=== PATIENT | female | born 1950 | race Caucasian/White ===

== ENCOUNTER 2019-12-14 15:24 | Inpatient (IN) | payer SELFPAY ==
--- NOTE | 2019-12-14 15:40 | PDOC ---
Rapid Medical Evaluation Time Seen by Provider: 12/14/19 15:36 Medical Evaluation: Allergies Allergy/AdvReac Type Severity Reaction Status Date / Time No Known Allergies Allergy Verified 11/28/14 13:45 12/14/19 15:36 CC: yellow diarrhea and rectal bleeding. PMHx-cirrhosis PE: Abd SNTND. Orders: GIB w/u Patient will proceed to the ED for further evaluation. 12/14/19 15:40 Discharge Disposition - Diagnosis Rectal bleeding - Referrals - Patient Instructions - Post Discharge Activity
[2019-12-14 15:42] VITALS: BMI 31.8
[2019-12-14 16:16] LABS: BASO % 0.1 % (0-2.0); EOS % 0.1 % (0-4.5); HEMATOCRIT 30.3 % (32.4-45.2); HEMOGLOBIN 10.4 GM/dL (10.7-15.3); LYMPH % 6.9 % (8-40); MCH 35.3 pg (25.7-33.7); MCHC 34.2 g/dl (32.0-36.0); MEAN CELL VOLUME 103.2 fl (80-96); MEAN PLT VOLUME 9.4 fl (7.5-11.1); MONO % 7.2 % (3.8-10.2); NEUT % 85.7 % (42.8-82.8); RBC 2.94 M/mm3 (3.60-5.2); RDW 14.8 % (11.6-15.6); WHITE BLOOD COUNT 4.4 K/mm3 (4.0-10.0)
--- NOTE | 2019-12-14 17:03 | PDOC ---
History of Present Illness - General Chief Complaint: Bleeding from Anus Stated Complaint: ANAL BLEEDING Time Seen by Provider: 12/14/19 15:36 History Source: Patient, Family Exam Limitations: Language Barrier - History of Present Illness Initial Comments: Connor Nelson is a 69 yo F w a hx of alcoholic cirhhosis and renal carcinoma presenting w a 3 day hx of bloody diarrhea. The diarrhea is not painful but the patient states when she goes to the bathroom the toilet is full of red blood. Diarrhea has been occuring twice an hour for the past 3 days. She denies having abdominal pain. She endorses fevers, chills, body aches, non- productive cough, runny nose, nausea without emesis. Daughter has been giving her tylenol for the past 2 days with minimal relief. Denies having chest pain, SOB, difficulty breathing. Denies recent travel outside of the country. Denies recent sick exposures. Denies blurry vision. PCP: Doc at [facility] Allergies: NKA, NKDA Social Hx: Former heavy drinker, denies smoking or ilicit drug usage PSH: None reported Past History - Past Medical History Allergies/Adverse Reactions: Allergies Allergy/AdvReac Type Severity Reaction Status Date / Time No Known Allergies Allergy Verified 12/14/19 15:37 Home Medications: Ambulatory Orders Alendronate Sodium [Fosamax] 1 tab PO WEEKLY 12/14/19 Calcium Carbonate/Vitamin D3 [Calcium 600-Vit D3 400 Tablet] 1 each PO DAILY Carvedilol [Coreg -] 3.125 mg PO DAILY 12/14/19 Carvedilol [Coreg -] 6.25 mg PO HS 12/14/19 Folic Acid 1 mg PO DAILY 12/14/19 Kidney Stones: Yes - Psycho Social/Smoking Cessation Hx Smoking History: Never smoked Have you smoked in the past 12 months: No Hx Alcohol Use: No Drug/Substance Use Hx: No Review of Systems - Review of Systems Able to Perform ROS?: Yes Comments:: CONSTITUTIONAL: Present: fever, chills, fatigue EYES: Absent: visual changes ENT: Absent: ear pain, no sore throat CARDIOVASCULAR: Absent: chest pain, no palpitations RESPIRATORY: Present: Cough Absent: no SOB GI: Present: Nausea, bloody diarrhea Absent: abdominal pain, no vomiting, no constipation GENITOURINARY: Absent: dysuria, no frequency, no hematuria MUSKULOSKELETAL: Present: Myalgia Absent: back pain, no arthralgia SKIN: Absent: rash NEURO: Absent: headache *Physical Exam - Vital Signs Last Vital Signs Temp Pulse Resp BP Pulse Ox 98.4 F 81 18 127/56 L 98 12/14/19 15:37 12/14/19 15:37 12/14/19 15:37 12/14/19 15:37 12/14/19 15:37 - Physical Exam GENERAL: Patient appears pale, jaundice, weak and ill. Moderate distress. HEENT: Normocephalic, atraumatic. PERRL, EOM intact. CARDIOVASCULAR: Tachycardic rate. Regular rhythm. PULMONARY: No evidence of respiratory distress. Lungs clear to auscultation bilaterally. No wheezing, rales or rhonchi. ABDOMEN: Hyperactive bowel sounds. Soft, non-distended, non-tender. EXTREMITIES: Normal ROM in all four extremities. No gross deformities. SKIN: Warm, dry. No rash NEUROLOGICAL: No focal neurological deficits. Rectal Exam: positive: normal rectal tone, heme positive stool, hemorrhoids, other (Patient has kathie bright red blood per rectum). negative: melena ED Treatment Course - LABORATORY CBC & Chemistry Diagram: 12/14/19 15:48 12/14/19 15:48 - ADDITIONAL ORDERS Additional order review: 12/14/19 15:48 RBC 2.94 L MCV 103.2 H MCHC 34.2 RDW 14.8 MPV 9.4 Neutrophils % 85.7 H Lymphocytes % 6.9 L D Monocytes % 7.2 Eosinophils % 0.1 D Basophils % 0.1 Medical Decision Making - Medical Decision Making Connor Nelson is a 69 yo F w a hx of alcoholic cirhhosis and renal carcinoma presenting w a 3 day hx of bloody diarrhea. The diarrhea is not painful but the patient states when she goes to the bathroom the toilet is full of red blood. Diarrhea has been occuring twice an hour for the past 3 days. She denies having abdominal pain. She endorses fevers, chills, body aches, non- productive cough, runny nose, nausea without emesis. Daughter has been giving her tylenol for the past 2 days with minimal relief. Vital Signs Temp Pulse Resp BP Pulse Ox 98.4 F 81 18 127/56 L 98 12/14/19 15:37 12/14/19 15:37 12/14/19 15:37 12/14/19 15:37 12/14/19 15:37 DDx IBNLT: Lower GI bleed more likely than upper GI bleed, Inluenza, gastroenteritis, dysentery Plan: Labs, flu swab, IV hydration, analgesia, re-assess. Labs: patient is anemic but appears to be around baseline Hypokalemic - repleting orally. Flu: Positive Rectal exam: There is bright red blood on rectal exam. There is also a painless external hemorrhoid. Plan: Tamiflu, admit to hospital as patient has multiple medical comorbidities, the flu, and bright red blood per rectum - GI consult Discharge - Discharge Information Problems reviewed: Yes Clinical Impression/Diagnosis: Rectal bleeding, BRBPR (bright red blood per rectum), Influenza A, Hypokalemia Condition: Stable - Admission Yes - Follow up/Referral - Patient Discharge Instructions - Post Discharge Activity
[2019-12-14 17:23] LABS: ALBUMIN 2.8 g/dl (3.4-5.0); BILIRUBIN,TOTAL 1.3 mg/dL (0.2-1); BLOOD UREA NITROGEN 20.2 mg/dL (7-18); CREATININE 0.9 mg/dL (0.55-1.3); POTASSIUM 3.1 mmol/L (3.5-5.1); TOT PROT 7.1 g/dl (6.4-8.2)
[2019-12-14] MEDS ORDERED: SODIUM CHLORIDE 0.9% 500 ML INFUS.BAG IV ONE (17:29)
[2019-12-14] MEDS ORDERED: POTASSIUM CHLORIDE ORAL LIQUID 20 MEQ/15 ML PO ONE (17:41)
[2019-12-14] MEDS ORDERED: OSELTAMIVIR PHOSPHATE 75 MG CAPSULE PO ONE (18:02)
[2019-12-14] MEDS ORDERED: OSELTAMIVIR PHOSPHATE 75 MG CAPSULE ONE (18:18)
[2019-12-14] MEDS ORDERED: POTASSIUM CHLORIDE ORAL LIQUID 20 MEQ/15 ML ONE (18:18)
--- NOTE | 2019-12-14 18:31 | PDOC ---
Attending Attestation - Resident Resident Name: Joe Up - ED Attending Attestation I have performed the following: I have examined & evaluated the patient, The case was reviewed & discussed with the resident, I agree w/resident's findings & plan - HPI HPI: 12/16/19 07:30 69 yo F w a hx of alcoholic cirhhosis and renal carcinoma presenting w a 3 day hx of bloody diarrhea/BRBPR and fever. Diarrhea has been occurring twice an hour for the past 3 days. She denies having abdominal pain. She endorses fevers , chills, body aches, non-productive cough, runny nose, nausea without emesis. Daughter has been giving her tylenol for the past 2 days with minimal relief. - Physicial Exam PE: 12/14/19 18:30 Agree with the resident's HPI and PE as documented in the electronic medical record. NAD, well appearing, EOMI, PERRL, nl conjunctiva, anicteric; neck supple. lungs clear, normal HR, +holosystolic murmur, abdomen soft nontender. obese. no rebound, guarding. Back nontender. MCKINNEY x4, no focal neuro deficits. No peripheral edema. normal color for ethnicity, WWP. Rectal exam performed by resident with gross bright red blood per rectum 12/14/19 18:31 12/14/19 18:31 - Medical Decision Making 12/14/19 18:31 Vital Signs Temp Pulse Resp BP Pulse Ox 98.4 F 81 18 127/56 L 98 12/14/19 15:37 12/14/19 15:37 12/14/19 15:37 12/14/19 15:37 12/14/19 15:37 DDX GIB: UGIB vs LGIB, diverticular bleed, AVM, polyp, brisk UGIB, PUD/duodenal ulcer, anemia, electrolyte/metabolic derangements, ischemic colitis, hemorrhagic colitis, mesenteric ischemia. Madelyn russo tear, doubt Borhaaves. Vital signs, within normal limits, no tachycardia, hemodynamically appropriate DDX GIB: UGIB vs LGIB, diverticular bleed, AVM, polyp, brisk UGIB, PUD/duodenal ulcer, anemia, electrolyte/metabolic derangements, ischemic colitis, hemorrhagic colitis, mesenteric ischemia. Madelyn russo tear, doubt Borhaaves. abdomen soft nontender, BRBPR, serial crits/abd exams. no indication for transfusion now, will need trending BRBPR going with more LGIB, cannot rule out UGIB/brisk bleed, protonix IV, defer UGIB regimen to GI, given history of cirrhosis flu positive, tamiflu treatment. admission for bloody diarrhea/colitis and influenza, medical management, GI consultation, NPO, bowel rest and supportive care 12/14/19 18:50
--- NOTE | 2019-12-14 19:17 | PN ---
Teaching Attending Note Name of Resident: Jasmeet Lopez ATTENDING PHYSICIAN STATEMENT I saw and evaluated the patient. I reviewed the resident's note and discussed the case with the resident. I agree with the resident's findings and plan as documented. SUBJECTIVE: Patient is a 69 year old woman with a PMH of Alcohol abuse, Alcoholic liver cirhhosis and Renal carcinoma presenting with a 3 day history of bloody diarrhea. The diarrhea is not painful but the patient states when she goes to the bathroom the toilet is full of red blood. Diarrhea has been occuring twice an hour for the past 3 days. She denies having abdominal pain. She has fevers, chills, body aches, non-productive cough, runny nose, nausea without emesis. Daughter has been giving her tylenol for the past 2 days with minimal relief. Denies having chest pain, SOB, blurry vision or recent travel outside of the country. Denies recent sick exposures. Denies current alcohol use, tobacco or illicit drug use. OBJECTIVE: Alert Vital Signs Period Temp Pulse Resp BP Sys/Galindo Pulse Ox Last 24 Hr 98.4 F 81 18 127/56 98 HEENT: No Jaundice, eye redness or discharge, PERRLA, EOMI. Normocephalic, atraumatic. External ears are normal and hearing is grossly intact. No nasal discharge. Neck: Supple, nontender. No palpable adenopathy or thyromegaly. No JVD Chest: Good effort. Clear to auscultation and percussion. Heart: Regular. No S3, rub or murmur Abdomen: Not distended, soft, nontender and no HSM. No rebound or guarding. Normal bowel sounds. Ext: Peripheral pulses intact. No leg edema. Has hemorrhoids. Skin: Warm and dry. No petechiae, rash or ecchymosis. Neuro: Alert. Oriented x3. CN 2-12 grossly intact. Sensation grossly intact in all four extremities and DTR are symmetric. Psych: Appropriate mood and affect. Good insight. Home Medications Medication Instructions Recorded Alendronate Sodium [Fosamax] 1 tab PO WEEKLY 12/14/19 Calcium Carbonate/Vitamin D3 1 each PO DAILY 12/14/19 [Calcium 600-Vit D3 400 Tablet] Carvedilol [Coreg -] 3.125 mg PO DAILY 12/14/19 Carvedilol [Coreg -] 6.25 mg PO HS 12/14/19 Folic Acid 1 mg PO DAILY 12/14/19 Abnormal Lab Results 12/14/19 12/14/19 12/14/19 15:48 15:48 16:48 RBC 2.94 L Hgb 10.4 L Hct 30.3 L D MCV 103.2 H MCH 35.3 H Neutrophils % 85.7 H Lymphocytes % 6.9 L D Potassium 3.1 L Chloride 114 H BUN 20.2 H Calcium 8.0 L Total Bilirubin 1.3 H AST 198 H Albumin 2.8 L Influenza A (Rapid) Positive A ASSESSMENT AND PLAN: 1. GI bleeding and Influenza A infection - Bleeding site unclear, though she has hemorrhoids. Will get CT abdomen/pelvis with contrast, send stool for routine stool studies, hydrate with IV NS and treat with IV Protonix 40 mg bid. Anemia likely multifactorial including acute blood loss and effects of alcoholism. Macrocytosis may signal recent alcohol use. Will do basic anemia work up including Vitamin B12/folate levels, reticulocyte count and iron studies. Send blood for type and screen. Monitor HCT q 3 hours and transfuse when clinically indicated. Consult GI. Hypokalemia likely partly due to stool losses. Will check serum magnesium and give IV and PO KCL. Being treated with Tamiflu and will place on isolation. Get CXR and UA. EKG pending. Will continue comprehensive care for all of patients comorbid conditions. 2. Hypoalbuminemia - Possibly due to combined effects of malnutrition and inflammation associated with comorbid chronic conditions. Will ensure adequate dietary protein intake and also consult mosaic technician. Urinalysis pending. 3. Obesity Counseled on the risks associated with obesity. Will provide patient all the necessary assistance, counseling and positive reinforcement to facilitate weight loss. Consult mosaic technician. 4. Alcohol abuse - Implement [facility] withdrawal [facility] and do neurochecks. Implement seizure, fall and aspiration precautions. Treat with thiamine and folic acid and monitor electrolytes (Ca,Mg,K,P). Counseled patient about abstaining from alcohol. Will consult it operations specialist and refer to alcohol detox upon discharge. 5. DVT prophylaxis - SCD 6. Advance directives - Full code
[2019-12-14 20:41] LABS: RETICULOCYTES 1.68 % (0.5-1.5)
[2019-12-14 21:33] LABS: PLATELET ESTIMATE DECREASED
[2019-12-14] MEDS ORDERED: SODIUM CHLORIDE 0.9%/KCL 20 MEQ/1,000 ML INFUS.BAG IV SCH (21:45)
[2019-12-14 21:57] LABS: PLATELET COUNT 30 K/MM3 (134-434)
[2019-12-14 21:59] LABS: BASO % 0.2 % (0-2.0); HEMATOCRIT 31.3 % (32.4-45.2); HEMOGLOBIN 10.6 GM/dL (10.7-15.3); LYMPH % 6.4 % (8-40); MCH 35.4 pg (25.7-33.7); MCHC 34.1 g/dl (32.0-36.0); MEAN CELL VOLUME 103.9 fl (80-96); MEAN PLT VOLUME 10.1 fl (7.5-11.1); MONO % 8.9 % (3.8-10.2); NEUT % 84.5 % (42.8-82.8); RBC 3.01 M/mm3 (3.60-5.2); RDW 14.8 % (11.6-15.6); WHITE BLOOD COUNT 4.7 K/mm3 (4.0-10.0)
[2019-12-14] MEDS ORDERED: POTASSIUM CHLORIDE ORAL LIQUID 20 MEQ/15 ML PO SCH (22:00)
[2019-12-14 22:03] LABS: PLATELET COUNT 34 K/MM3 (134-434)
[2019-12-14 22:11] LABS: MAGNESIUM 1.8 mg/dL (1.8-2.4)
[2019-12-15] MEDS ORDERED: OSELTAMIVIR PHOSPHATE 75 MG CAPSULE ONE (00:30)
--- NOTE | 2019-12-15 00:34 | HP ---
CHIEF COMPLAINT: Bleeding pre rectum over the past 3 days as well as cough, fever, and chills for the past 2 days PCP: Dr. Lydia Pitt ([facility]) HISTORY OF PRESENT ILLNESS: This is a 69 year old female with PMH significant for alcoholic liver cirrhosis , RCC (renal cell carcinoma), osteoporosis, and hypertension. She presented to the ER with complaints of bleeding pre rectum over the past 3 days as well as cough, fever, and chills for the past 2 days. She is a [place] speaker, and her daughter was present at bedside to assist with the history and physical examination. The bleeding began 3 days ago, first noticed as a few drops of blood mixed with stool as well as on the toilet paper after wiping. She also felt a sensation of heaviness inside the anal cavity, and felt something protruding while she was defecating. The amount of blood gradually began to increase over the next few days. She has had approximately 10 episodes per day, all associated with bleeding. She has no history of bleeding or hemorrhoids prior to this event. There was no associated abdominal or rectal pain involved, and no nausea, vomiting, alternating constipation, dizziness, light headedness, SOB, chest pain , palpitations, dysuria, hematuria, increased frequency, or polyuria. She was diagnosed with liver cirrhosis 5 years ago as a result of heavy alcohol intake in the past. Patient states that she consumed approximately a bottle of whiskey over the course of 1,2 days every week, but quit 18 years ago. Around the same time, she developed hemetemesis for a few days, and had an endoscopy performed (first in 2015 and then again in 2016). She states that there were no abnormal findings either time. She had an attempted colonoscopy done 6 years ago, which could not be completed. The patient is unsure about the rationale, and states that she was told that her history of radiation therapy (2/ cervical CA 20 years ago) was a contraindication to colonoscopy. According to her, the procedure was abandoned , and no repeated attempts have been made. She had an endoscopy done in 2014 as well as 2016 She also presents with a cough, fever, and chills for the past 2 days. The cough started as a dry cough, but she has been producing clear sputum since arriving at the ER a few hours ago. She lives with her daughter, son in law, and 3 grand children. The grandchildren have had similar symptoms over the past few weeks. The patient has not received the flu vaccine this season, has no other recent illnesses, and denies recent travel. She has a history of cervical cancer diagnosed in [place] 20 years ago, treated with radiation therapy for 3 months. As per the patient's daughter, she had a lung mass removed shortly afterwards. She did not receive any chemotherapy at the time. She also has a history of right sided renal cell carcinoma, for which she had her left kidney removed. Her family history is positive for lung CA (father), and a brother who suddenly (unsure why). ER course was notable for: (1) H/H 10.4/30.3 (2) FOBT+ (3) K 3.1 Recent Travel: denies PAST MEDICAL HISTORY: As listed in HPI PAST SURGICAL HISTORY: As listed in HPI Social History: Smoking: Quit many years ago, smoked occasionally Alcohol: Approximately a bottle of whiskey over the course of 1,2 days every week, but quit 18 years ago Drugs: denies Worked as a clothes salesperson in a market in [place] Allergies No Known Allergies Allergy (Verified 12/14/19 15:37) HOME MEDICATIONS: Home Medications Medication Instructions Recorded Alendronate Sodium [Fosamax] 1 tab PO WEEKLY 12/14/19 Calcium Carbonate/Vitamin D3 1 each PO DAILY 12/14/19 [Calcium 600-Vit D3 400 Tablet] Carvedilol [Coreg -] 3.125 mg PO DAILY 12/14/19 Carvedilol [Coreg -] 6.25 mg PO HS 12/14/19 Folic Acid 1 mg PO DAILY 12/14/19 REVIEW OF SYSTEMS CONSTITUTIONAL: fever Absent: fever, chills, diaphoresis, generalized weakness, malaise, loss of appetite, weight change HEENT: Absent: rhinorrhea, nasal congestion, throat pain, throat swelling, difficulty swallowing, mouth swelling, ear pain, eye pain, visual changes CARDIOVASCULAR: Absent: chest pain, syncope, palpitations, irregular heart rate, lightheadedness , peripheral edema RESPIRATORY: cough Absent: cough, shortness of breath, dyspnea with exertion, orthopnea, wheezing, stridor, hemoptysis GASTROINTESTINAL: melena, Absent: abdominal pain, abdominal distension, nausea, vomiting, diarrhea, constipation, melena, hematochezia GENITOURINARY: Absent: dysuria, frequency, urgency, hesitancy, hematuria, flank pain, genital pain MUSCULOSKELETAL: Absent: myalgia, arthralgia, joint swelling, back pain, neck pain SKIN: Absent: rash, itching, pallor HEMATOLOGIC/IMMUNOLOGIC: Absent: easy bleeding, easy bruising, lymphadenopathy, frequent infections ENDOCRINE: Absent: unexplained weight gain, unexplained weight loss, heat intolerance, cold intolerance NEUROLOGIC: Absent: headache, focal weakness or paresthesias, dizziness, unsteady gait, seizure, mental status changes, bladder or bowel incontinence PSYCHIATRIC: Absent: anxiety, depression, suicidal or homicidal ideation, hallucinations. PHYSICAL EXAMINATION Vital Signs - 24 hr 12/14/19 15:37 Temperature 98.4 F Pulse Rate 81 Respiratory 18 Rate Blood Pressure 127/56 L O2 Sat by Pulse 98 Oximetry (%) GENERAL: Awake, alert, and fully oriented, in no acute distress. HEAD: Normal with no signs of trauma. EYES: ISRRAEL, EOMI, scleral icterus present EARS, NOSE, THROAT: Ears normal, nares patent, oropharynx clear without exudates. Dry mucous membranes. NECK: Normal range of motion, supple without lymphadenopathy, JVD, or masses. LUNGS: Decreased BS B/L, surgical scar noticed below left scapula HEART: Regular rate and rhythm, normal S1 and S2 without murmur, rub or gallop. ABDOMEN: Soft, nontender, not distended, on digital rectal exam hemorrhoid noticed in 6 o clock position, normal tone, internal hemorrhoids appreciated, finger was covered in blood, Pérez's negative MUSCULOSKELETAL: Normal range of motion at all joints. No bony deformities or tenderness. No CVA tenderness. UPPER EXTREMITIES: 2+ pulses, warm, well-perfused. No cyanosis. No clubbing. No peripheral edema. LOWER EXTREMITIES: Localized edema over left ankle NEUROLOGICAL: Cranial nerves II-XII intact. Normal speech. Normal gait. PSYCHIATRIC: Cooperative. Good eye contact. Appropriate mood and affect. SKIN: Warm, dry, normal turgor, no rashes or lesions noted, normal capillary refill. Laboratory Results - last 24 hr 12/14/19 12/14/19 12/14/19 15:37 15:48 15:48 WBC 4.4 RBC 2.94 L Hgb 10.4 L Hct 30.3 L D MCV 103.2 H MCH 35.3 H MCHC 34.2 RDW 14.8 Plt Count 30 L* D MPV 9.4 Absolute Neuts (auto) 3.8 Neutrophils % 85.7 H Lymphocytes % 6.9 L D Monocytes % 7.2 Eosinophils % 0.1 D Basophils % 0.1 Nucleated RBC % 0 Platelet Estimate Decreased Platelet Comment No clumping noted Retic Count 1.68 H Sodium 143 Potassium 3.1 L Chloride 114 H Carbon Dioxide 21 Anion Gap 8 BUN 20.2 H Creatinine 0.9 Est GFR (CKD-EPI)AfAm 75.61 Est GFR (CKD-EPI)NonAf 65.24 Random Glucose 89 Calcium 8.0 L Magnesium 1.8 Total Bilirubin 1.3 H AST 198 H ALT 60 Alkaline Phosphatase 69 Total Protein 7.1 Albumin 2.8 L Stool Occult Blood Positive Influenza A (Rapid) Influenza B (Rapid) Blood Type Antibody Screen 12/14/19 12/14/19 12/14/19 15:48 15:48 16:48 WBC RBC Hgb Hct MCV MCH MCHC RDW Plt Count MPV Absolute Neuts (auto) Neutrophils % Lymphocytes % Monocytes % Eosinophils % Basophils % Nucleated RBC % Platelet Estimate Platelet Comment Retic Count Cancelled Sodium Potassium Chloride Carbon Dioxide Anion Gap BUN Creatinine Est GFR (CKD-EPI)AfAm Est GFR (CKD-EPI)NonAf Random Glucose Calcium Magnesium Total Bilirubin AST ALT Alkaline Phosphatase Total Protein Albumin Stool Occult Blood Influenza A (Rapid) Positive A Influenza B (Rapid) Negative Blood Type O POSITIVE Antibody Screen Negative 12/14/19 21:39 WBC 4.7 RBC 3.01 L Hgb 10.6 L Hct 31.3 L MCV 103.9 H MCH 35.4 H MCHC 34.1 RDW 14.8 Plt Count 34 L* MPV 10.1 Absolute Neuts (auto) 3.9 Neutrophils % 84.5 H Lymphocytes % 6.4 L Monocytes % 8.9 Eosinophils % 0.0 D Basophils % 0.2 Nucleated RBC % 0 Platelet Estimate Platelet Comment Retic Count Sodium Potassium Chloride Carbon Dioxide Anion Gap BUN Creatinine Est GFR (CKD-EPI)AfAm Est GFR (CKD-EPI)NonAf Random Glucose Calcium Magnesium Total Bilirubin AST ALT Alkaline Phosphatase Total Protein Albumin Stool Occult Blood Influenza A (Rapid) Influenza B (Rapid) Blood Type Antibody Screen ASSESSMENT/PLAN: 69 year old female with PMH significant for alcoholic liver cirrhosis, RCC ( renal cell carcinoma), osteoporosis, and hypertension. She presented to the ER with complaints of bleeding pre rectum over the past 3 days as well as cough, fever, and chills for the past 2 days #Bleeding DE - FOBT + although exact source is unclear, CT AP w/wo contrast to investigate further - IV N/S with 20mEQ K for correction of hypokalemia - Protonix IV 40mg BID - GI consult placed #Anemia - Likely due to volume loss 2/2 bleeding, macrocytosis likely due to hx of alcohol abuse - H/H 10.4/30.3, MCV 103 - Iron TIBC profile, B12/Folate levels ordered - Will trend H/H, will transfuse if Hgb falls below 8 #Thrombocytopenia - Pt 30 -> 34k, likely due to hx of cirrhosis (Pt were 131 in 2010 and 67 in 2014, may be indicative of gradual decline with corresponding with worsening cirrhosis - Pt transfusion ordered due to Pt <50k in setting of active bleeding - Daughter not present at bedside, road boss service (ID [id number]) used to explain to patient the risks/benefits of platelet transfusion. Consent forms in Faroese as well as [place] Korean provided. After extensive discussion, pt stated she was not comfortable signing consent without her daughter, who will arrive at 0730. Explained risks of delaying transfusion, pt understood and would like to wait. Consent forms handed to SHAILESH Hoffman - Will monitor Pt count #Influenza - CXR pending - Influenza A positive - Started on Tamiflu 75mg BID - Isolation, droplet precaution #Transaminitis - T Bili 1.3, AST 198, sclera icteric on exam but no findings on abdominal exam , may be due to cirrhosis - Will F/U CT AP #Hypokalemia - May be due to fluid loss - Given 40meQ PO and 20meQ with N/S - Will F/U in AM and replete as necessary #Hx of HTN - Resume home meds once confirmed #Hx of osteoporosis - On alendronate at home, will continue once confirmed #FEN - N/S @ 83 with 20mEQ K - Monitor K+ - NPO for now due to bleeding #DVT - SCD, avoid chemical AC due to active bleeding Visit type - Emergency Visit Emergency Visit: Yes ED Registration Date: 12/14/19 Care time: The patient presented to the Emergency Department on the above date and was hospitalized for further evaluation of their emergent condition. - New Patient This patient is new to me today: Yes Date on this admission: 12/15/19 - Critical Care Critical Care patient: No ATTENDING PHYSICIAN STATEMENT I saw and evaluated the patient. I reviewed the resident's note and discussed the case with the resident. I agree with the resident's findings and plan as documented. SUBJECTIVE: OBJECTIVE: ASSESSMENT AND PLAN:
[2019-12-15] MEDS: OSELTAMIVIR PHOSPHATE 75 MG CAPSULE PO SCH ×2 (00:46→10:28)
[2019-12-15 08:04] LABS: INR 1.36 (0.83-1.09); PROTHROMBIN TIME (PATIENT) 16.1 SEC (9.7-13.0)
[2019-12-15 08:18] LABS: BASO % 0.3 % (0-2.0); HEMATOCRIT 28.6 % (32.4-45.2); HEMOGLOBIN 9.9 GM/dL (10.7-15.3); LYMPH % 7.9 % (8-40); MCH 35.4 pg (25.7-33.7); MCHC 34.7 g/dl (32.0-36.0); MEAN CELL VOLUME 102.2 fl (80-96); MEAN PLT VOLUME 10.1 fl (7.5-11.1); MONO % 10.7 % (3.8-10.2); NEUT % 81.1 % (42.8-82.8); RDW 14.4 % (11.6-15.6); WHITE BLOOD COUNT 3.1 K/mm3 (4.0-10.0)
[2019-12-15 08:37] LABS: PLATELET COUNT 32 K/MM3 (134-434)
[2019-12-15] MEDS ORDERED: OCTREOTIDE ACETATE 50 MCG/1 ML - 1 ML VIAL IVPUSH ONE (09:59)
[2019-12-15] MEDS ORDERED: PANTOPRAZOLE SODIUM 40 MG VIAL IVPUSH SCH (10:00)
[2019-12-15] MEDS ORDERED: OCTREOTIDE ACETATE 200 MCG, OCTREOTIDE ACETATE 1,000 MCG in DEXTROSE 5%-WATER - 496 ML IVPB SCH (10:00)
[2019-12-15] MEDS ORDERED: PHYTONADIONE 10 MG/1 ML AMP SQ ONE (10:01)
[2019-12-15] MEDS ORDERED: OCTREOTIDE ACETATE 100 MCG/1 ML ONE (10:19)
[2019-12-15] MEDS ORDERED: PHYTONADIONE 10 MG/1 ML AMP ONE (10:31)
[2019-12-15] MEDS ORDERED: OCTREOTIDE ACETATE 500 MCG/1 ML - 1 ML VIAL ONE (10:31)
--- NOTE | 2019-12-15 12:41 | EKG ---
Test Reason : Blood Pressure : / mmHG Vent. Rate : 085 BPM Atrial Rate : 085 BPM P-R Int : 114 ms QRS Dur : 080 ms QT Int : 354 ms P-R-T Axes : 072 026 034 degrees QTc Int : 421 ms POOR DATA QUALITY, INTERPRETATION MAY BE ADVERSELY AFFECTED NORMAL SINUS RHYTHM NONSPECIFIC ST ABNORMALITY ABNORMAL ECG WHEN COMPARED WITH ECG OF 05-DEC-2010 22:16, NO SIGNIFICANT CHANGE WAS FOUND Confirmed by MILVIA CHUN, YON ([id number]) on 12/15/2019 12:40:44 PM Referred By: Confirmed By:YON STEEL MD
--- NOTE | 2019-12-15 13:32 | CONSULT ---
Consultation: CONSULT SERVICE: Hematology/Oncology HISTORY OF PRESENT ILLNESS: 69yo F with h/o Alcoholic cirrhosis, RCC, HTN, osteoporosis, REVIEW OF SYSTEMS: CONSTITUTIONAL: Absent: fever, chills, diaphoresis, generalized weakness, malaise, loss of appetite, weight change HEENT: Absent: rhinorrhea, nasal congestion, throat pain, throat swelling, difficulty swallowing, mouth swelling, ear pain, eye pain, visual changes CARDIOVASCULAR: Absent: chest pain, syncope, palpitations, irregular heart rate, lightheadedness , peripheral edema RESPIRATORY: Absent: cough, shortness of breath, dyspnea with exertion, orthopnea, wheezing, stridor, hemoptysis GASTROINTESTINAL: Absent: abdominal pain, abdominal distension, nausea, vomiting, diarrhea, constipation, melena, hematochezia GENITOURINARY: Absent: dysuria, frequency, urgency, hesitancy, hematuria, flank pain, genital pain MUSCULOSKELETAL: Absent: myalgia, arthralgia, joint swelling, back pain, neck pain SKIN: Absent: rash, itching, pallor HEMATOLOGIC/IMMUNOLOGIC: Absent: easy bleeding, easy bruising, lymphadenopathy, frequent infections ENDOCRINE: Absent: unexplained weight gain, unexplained weight loss, heat intolerance, cold intolerance NEUROLOGIC: Absent: headache, focal weakness or paresthesias, dizziness, unsteady gait, seizure, mental status changes, bladder or bowel incontinence PSYCHIATRIC: Absent: anxiety, depression, suicidal or homicidal ideation, hallucinations. PHYSICAL EXAMINATION Vital Signs - 24 hr 12/14/19 12/15/19 12/15/19 15:37 01:03 06:00 Temperature 98.4 F 101.0 F H 99.5 F Pulse Rate 81 Pulse Rate [ 88 85 Apical] Pulse Rate [ Right Radial] Respiratory 18 20 18 Rate Blood Pressure 127/56 L Blood Pressure 127/58 L 125/55 L [Right] O2 Sat by Pulse 98 97 97 Oximetry (%) 12/15/19 07:05 Temperature Pulse Rate Pulse Rate [ Apical] Pulse Rate [ 84 Right Radial] Respiratory 20 Rate Blood Pressure Blood Pressure 141/62 [Right] O2 Sat by Pulse 97 Oximetry (%) GENERAL: Awake, alert, and fully oriented, in no acute distress. HEAD: Normal with no signs of trauma. EYES: Pupils equal, round and reactive to light, extraocular movements intact, sclera anicteric, conjunctiva clear. No lid lag. EARS, NOSE, THROAT: Ears normal, nares patent, oropharynx clear without exudates. Moist mucous membranes. NECK: Normal range of motion, supple without lymphadenopathy, JVD, or masses. LUNGS: Breath sounds equal, clear to auscultation bilaterally. No wheezes, and no crackles. No accessory muscle use. HEART: Regular rate and rhythm, normal S1 and S2 without murmur, rub or gallop. ABDOMEN: Soft, nontender, not distended, normoactive bowel sounds, no guarding, no rebound, no masses. No hepatomegaly or splenomegaly. MUSCULOSKELETAL: Normal range of motion at all joints. No bony deformities or tenderness. No CVA tenderness. UPPER EXTREMITIES: 2+ pulses, warm, well-perfused. No cyanosis. No clubbing. Cap refill <2 seconds. No peripheral edema. LOWER EXTREMITIES: 2+ pulses, warm, well-perfused. No calf tenderness. No peripheral edema. NEUROLOGICAL: Cranial nerves II-XII intact. Normal speech. Normal gait. PSYCHIATRIC: Cooperative. Good eye contact. Appropriate mood and affect. SKIN: Warm, dry, normal turgor, no rashes or lesions noted. Laboratory Results - last 24 hr 12/14/19 12/14/19 12/14/19 15:37 15:48 15:48 WBC 4.4 RBC 2.94 L Hgb 10.4 L Hct 30.3 L D MCV 103.2 H MCH 35.3 H MCHC 34.2 RDW 14.8 Plt Count 30 L* D MPV 9.4 Absolute Neuts (auto) 3.8 Neutrophils % 85.7 H Lymphocytes % 6.9 L D Monocytes % 7.2 Eosinophils % 0.1 D Basophils % 0.1 Nucleated RBC % 0 Platelet Estimate Decreased Platelet Comment No clumping noted Retic Count 1.68 H PT with INR INR Sodium 143 Potassium 3.1 L Chloride 114 H Carbon Dioxide 21 Anion Gap 8 BUN 20.2 H Creatinine 0.9 Est GFR (CKD-EPI)AfAm 75.61 Est GFR (CKD-EPI)NonAf 65.24 Random Glucose 89 Calcium 8.0 L Magnesium 1.8 Iron TIBC Iron Saturation Unsaturated IBC Total Bilirubin 1.3 H AST 198 H ALT 60 Alkaline Phosphatase 69 Total Protein 7.1 Albumin 2.8 L Vitamin B12 Serum Folate Stool Occult Blood Positive Influenza A (Rapid) Influenza B (Rapid) Blood Type Antibody Screen 12/14/19 12/14/19 12/14/19 15:48 15:48 16:48 WBC RBC Hgb Hct MCV MCH MCHC RDW Plt Count MPV Absolute Neuts (auto) Neutrophils % Lymphocytes % Monocytes % Eosinophils % Basophils % Nucleated RBC % Platelet Estimate Platelet Comment Retic Count Cancelled PT with INR INR Sodium Potassium Chloride Carbon Dioxide Anion Gap BUN Creatinine Est GFR (CKD-EPI)AfAm Est GFR (CKD-EPI)NonAf Random Glucose Calcium Magnesium Iron TIBC Iron Saturation Unsaturated IBC Total Bilirubin AST ALT Alkaline Phosphatase Total Protein Albumin Vitamin B12 Serum Folate Stool Occult Blood Influenza A (Rapid) Positive A Influenza B (Rapid) Negative Blood Type O POSITIVE Antibody Screen Negative 12/14/19 12/15/19 12/15/19 21:39 04:20 06:22 WBC 4.7 3.1 L RBC 3.01 L 2.80 L Hgb 10.6 L 9.9 L Hct 31.3 L 28.6 L MCV 103.9 H 102.2 H MCH 35.4 H 35.4 H MCHC 34.1 34.7 RDW 14.8 14.4 Plt Count 34 L* 32 L* MPV 10.1 10.1 Absolute Neuts (auto) 3.9 2.5 Neutrophils % 84.5 H 81.1 Lymphocytes % 6.4 L 7.9 L D Monocytes % 8.9 10.7 H Eosinophils % 0.0 D 0.0 Basophils % 0.2 0.3 Nucleated RBC % 0 0 Platelet Estimate Platelet Comment Retic Count PT with INR INR Sodium Potassium Chloride Carbon Dioxide Anion Gap BUN Creatinine Est GFR (CKD-EPI)AfAm Est GFR (CKD-EPI)NonAf Random Glucose Calcium Magnesium Iron TIBC Iron Saturation Unsaturated IBC Total Bilirubin AST ALT Alkaline Phosphatase Total Protein Albumin Vitamin B12 Serum Folate Stool Occult Blood Influenza A (Rapid) Influenza B (Rapid) Blood Type Cancelled Antibody Screen 12/15/19 12/15/19 12/15/19 06:22 06:22 06:22 WBC RBC Hgb Hct MCV MCH MCHC RDW Plt Count MPV Absolute Neuts (auto) Neutrophils % Lymphocytes % Monocytes % Eosinophils % Basophils % Nucleated RBC % Platelet Estimate Platelet Comment Retic Count PT with INR 16.10 H INR 1.36 H Sodium Potassium Chloride Carbon Dioxide Anion Gap BUN Creatinine Est GFR (CKD-EPI)AfAm Est GFR (CKD-EPI)NonAf Random Glucose Calcium Magnesium 2.0 Iron 11 L TIBC 269 Iron Saturation 4 L Unsaturated IBC 258 Total Bilirubin AST ALT Alkaline Phosphatase Total Protein Albumin Vitamin B12 5963 H Serum Folate 35 H Stool Occult Blood Influenza A (Rapid) Influenza B (Rapid) Blood Type Antibody Screen 12/15/19 12/15/19 10:45 10:45 WBC RBC Hgb Hct MCV MCH MCHC RDW Plt Count MPV Absolute Neuts (auto) Neutrophils % Lymphocytes % Monocytes % Eosinophils % Basophils % Nucleated RBC % Platelet Estimate Platelet Comment Retic Count PT with INR INR Sodium Potassium Chloride Carbon Dioxide Anion Gap BUN Creatinine Est GFR (CKD-EPI)AfAm Est GFR (CKD-EPI)NonAf Random Glucose Calcium Magnesium Iron TIBC Iron Saturation Unsaturated IBC Total Bilirubin AST ALT Alkaline Phosphatase Total Protein Albumin Vitamin B12 Serum Folate Stool Occult Blood Influenza A (Rapid) Influenza B (Rapid) Blood Type Cancelled O POSITIVE Antibody Screen Cancelled Active Medications Generic Name Dose Route Start Last Admin Trade Name Freq PRN Reason Stop Dose Admin Chlorhexidine Gluconate 1 applic 12/15/19 22:00 Hibiclens For Decolonization - TP HS GREY Potassium Chloride/Sodium Chloride 20 meq in 1,000 mls @ 83 mls/hr 12/14/19 21 :45 12/15/19 00:46 Ns+20 Meq Kcl - IV 83 mls/hr ASDIR GREY Administration Octreotide Acetate 200 mcg/ 500 mls @ 20.833 mls/hr 12/15/19 10:00 12/15/19 11:48 Octreotide Acetate 1,000 mcg/ IVPB 20.833 mls/hr Dextrose ASDIR GREY Administration Protocol Mupirocin 1 applic 12/15/19 22:00 Bactroban Ointment (For Decolonization) - NS 12/20/19 21:59 BID GREY Oseltamivir Phosphate 75 mg 12/14/19 22:00 12/15/19 10:28 Tamiflu - PO 12/19/19 21:59 75 mg BID GREY Administration Pantoprazole Sodium 40 mg 12/15/19 10:00 12/15/19 10:28 Protonix Iv IVPUSH 40 mg BID GREY Administration ASSESSMENT/PLAN: Dispo: We will continue to follow the patient. Thank you for this consultative opportunity. ATTENDING PHYSICIAN STATEMENT I saw and evaluated the patient. I reviewed the resident's note and discussed the case with the resident. I agree with the resident's findings and plan as documented. SUBJECTIVE: OBJECTIVE: ASSESSMENT AND PLAN:
--- NOTE | 2019-12-15 14:13 | CONSULT ---
Consultation: REQUESTING PROVIDER: Dr Molina CONSULT REQUEST: We have been asked to medically evaluate this patient for (ICU monitoring). HISTORY OF PRESENT ILLNESS: 69 year old female with PMH significant for alcoholic liver cirrhosis, RCC ( renal cell carcinoma), osteoporosis, and hypertension. She presented to the ER with complaints of bleeding pre rectum over the past 3 days as well as non productive cough, fever, and chills for the past 2 days. Pt describes it as experiencing watery diarrhea with bright red blood in the bowl. Pt endorsed 10 episode prior to presentation as well as 4 episode while in ED. The diarrhea is associated with lower abdominal pain. According to pt, she had similar symptoms in the past after the consumption of diary foods. Pt endorsed a history of hematemesis with abnormal endoscopic findings ( pt unclear of what results were) . On a another note, pt tested positive for Influenza A in the ED and positive stool for occult blood. Pt was also found to be anemic at 9.9/28.6 with a platelet of 32 s/p 1 unit of platelets. REVIEW OF SYSTEMS: CONSTITUTIONAL: fever Absent: chills, diaphoresis, generalized weakness, malaise, loss of appetite, weight change HEENT: Absent: rhinorrhea, nasal congestion, throat pain, throat swelling, difficulty swallowing, mouth swelling, ear pain, eye pain, visual changes CARDIOVASCULAR: Absent: chest pain, syncope, palpitations, irregular heart rate, lightheadedness , peripheral edema RESPIRATORY: cough Absent: shortness of breath, dyspnea with exertion, orthopnea, wheezing, stridor, hemoptysis GASTROINTESTINAL:abdominal pain,diarrhea,hematochezia Absent: abdominal distension, nausea, vomiting, constipation, melena, GENITOURINARY: Absent: dysuria, frequency, urgency, hesitancy, hematuria, flank pain, genital pain MUSCULOSKELETAL: Absent: myalgia, arthralgia, joint swelling, back pain, neck pain SKIN: Absent: rash, itching, pallor HEMATOLOGIC/IMMUNOLOGIC: Absent: easy bleeding, easy bruising, lymphadenopathy, frequent infections ENDOCRINE: Absent: unexplained weight gain, unexplained weight loss, heat intolerance, cold intolerance NEUROLOGIC: headache Absent:focal weakness or paresthesias, dizziness, unsteady gait, seizure, mental status changes, bladder or bowel incontinence PSYCHIATRIC: Absent: anxiety, depression, suicidal or homicidal ideation, hallucinations. PHYSICAL EXAMINATION Vital Signs - 24 hr 12/14/19 12/15/19 12/15/19 15:37 01:03 06:00 Temperature 98.4 F 101.0 F H 99.5 F Pulse Rate 81 Pulse Rate [ 88 85 Apical] Pulse Rate [ Right Radial] Respiratory 18 20 18 Rate Blood Pressure 127/56 L Blood Pressure 127/58 L 125/55 L [Right] O2 Sat by Pulse 98 97 97 Oximetry (%) 12/15/19 07:05 Temperature Pulse Rate Pulse Rate [ Apical] Pulse Rate [ 84 Right Radial] Respiratory 20 Rate Blood Pressure Blood Pressure 141/62 [Right] O2 Sat by Pulse 97 Oximetry (%) GENERAL: Awake, alert, and fully oriented, in mild distress. HEAD: Normal with no signs of trauma. EYES: Pupils equal, round and reactive to light, extraocular movements intact, sclera anicteric, conjunctiva pallor. No lid lag. EARS, NOSE, THROAT: oropharynx clear without exudates with poor dentition. Moist mucous membranes. NECK: Normal range of motion, supple without lymphadenopathy, JVD, or masses. LUNGS: Breath sounds equal, clear to auscultation bilaterally. No wheezes, and no crackles. No accessory muscle use. HEART: Regular rate and rhythm, normal S1 and S2 without murmur, rub or gallop. ABDOMEN: Soft, B/L LQ tenderness, not distended, normoactive bowel sounds, no guarding, no rebound, no masses. UPPER EXTREMITIES: 2+ pulses, warm, well-perfused. No cyanosis. No clubbing. Cap refill <2 seconds. No peripheral edema. LOWER EXTREMITIES: 2+ pulses, warm, well-perfused. No calf tenderness. No peripheral edema. PSYCHIATRIC: Cooperative. Good eye contact. Appropriate mood and affect. Laboratory Results - last 24 hr 12/14/19 12/14/19 12/14/19 15:37 15:48 15:48 WBC 4.4 RBC 2.94 L Hgb 10.4 L Hct 30.3 L D MCV 103.2 H MCH 35.3 H MCHC 34.2 RDW 14.8 Plt Count 30 L* D MPV 9.4 Absolute Neuts (auto) 3.8 Neutrophils % 85.7 H Lymphocytes % 6.9 L D Monocytes % 7.2 Eosinophils % 0.1 D Basophils % 0.1 Nucleated RBC % 0 Platelet Estimate Decreased Platelet Comment No clumping noted Retic Count 1.68 H PT with INR INR Sodium 143 Potassium 3.1 L Chloride 114 H Carbon Dioxide 21 Anion Gap 8 BUN 20.2 H Creatinine 0.9 Est GFR (CKD-EPI)AfAm 75.61 Est GFR (CKD-EPI)NonAf 65.24 Random Glucose 89 Calcium 8.0 L Magnesium 1.8 Iron TIBC Iron Saturation Unsaturated IBC Total Bilirubin 1.3 H AST 198 H ALT 60 Alkaline Phosphatase 69 Total Protein 7.1 Albumin 2.8 L Vitamin B12 Serum Folate Stool Occult Blood Positive Influenza A (Rapid) Influenza B (Rapid) Blood Type Antibody Screen 12/14/19 12/14/19 12/14/19 15:48 15:48 16:48 WBC RBC Hgb Hct MCV MCH MCHC RDW Plt Count MPV Absolute Neuts (auto) Neutrophils % Lymphocytes % Monocytes % Eosinophils % Basophils % Nucleated RBC % Platelet Estimate Platelet Comment Retic Count Cancelled PT with INR INR Sodium Potassium Chloride Carbon Dioxide Anion Gap BUN Creatinine Est GFR (CKD-EPI)AfAm Est GFR (CKD-EPI)NonAf Random Glucose Calcium Magnesium Iron TIBC Iron Saturation Unsaturated IBC Total Bilirubin AST ALT Alkaline Phosphatase Total Protein Albumin Vitamin B12 Serum Folate Stool Occult Blood Influenza A (Rapid) Positive A Influenza B (Rapid) Negative Blood Type O POSITIVE Antibody Screen Negative 12/14/19 12/15/19 12/15/19 21:39 04:20 06:22 WBC 4.7 3.1 L RBC 3.01 L 2.80 L Hgb 10.6 L 9.9 L Hct 31.3 L 28.6 L MCV 103.9 H 102.2 H MCH 35.4 H 35.4 H MCHC 34.1 34.7 RDW 14.8 14.4 Plt Count 34 L* 32 L* MPV 10.1 10.1 Absolute Neuts (auto) 3.9 2.5 Neutrophils % 84.5 H 81.1 Lymphocytes % 6.4 L 7.9 L D Monocytes % 8.9 10.7 H Eosinophils % 0.0 D 0.0 Basophils % 0.2 0.3 Nucleated RBC % 0 0 Platelet Estimate Platelet Comment Retic Count PT with INR INR Sodium Potassium Chloride Carbon Dioxide Anion Gap BUN Creatinine Est GFR (CKD-EPI)AfAm Est GFR (CKD-EPI)NonAf Random Glucose Calcium Magnesium Iron TIBC Iron Saturation Unsaturated IBC Total Bilirubin AST ALT Alkaline Phosphatase Total Protein Albumin Vitamin B12 Serum Folate Stool Occult Blood Influenza A (Rapid) Influenza B (Rapid) Blood Type Cancelled Antibody Screen 12/15/19 12/15/19 12/15/19 06:22 06:22 06:22 WBC RBC Hgb Hct MCV MCH MCHC RDW Plt Count MPV Absolute Neuts (auto) Neutrophils % Lymphocytes % Monocytes % Eosinophils % Basophils % Nucleated RBC % Platelet Estimate Platelet Comment Retic Count PT with INR 16.10 H INR 1.36 H Sodium Potassium Chloride Carbon Dioxide Anion Gap BUN Creatinine Est GFR (CKD-EPI)AfAm Est GFR (CKD-EPI)NonAf Random Glucose Calcium Magnesium 2.0 Iron 11 L TIBC 269 Iron Saturation 4 L Unsaturated IBC 258 Total Bilirubin AST ALT Alkaline Phosphatase Total Protein Albumin Vitamin B12 5963 H Serum Folate 35 H Stool Occult Blood Influenza A (Rapid) Influenza B (Rapid) Blood Type Antibody Screen 12/15/19 12/15/19 10:45 10:45 WBC RBC Hgb Hct MCV MCH MCHC RDW Plt Count MPV Absolute Neuts (auto) Neutrophils % Lymphocytes % Monocytes % Eosinophils % Basophils % Nucleated RBC % Platelet Estimate Platelet Comment Retic Count PT with INR INR Sodium Potassium Chloride Carbon Dioxide Anion Gap BUN Creatinine Est GFR (CKD-EPI)AfAm Est GFR (CKD-EPI)NonAf Random Glucose Calcium Magnesium Iron TIBC Iron Saturation Unsaturated IBC Total Bilirubin AST ALT Alkaline Phosphatase Total Protein Albumin Vitamin B12 Serum Folate Stool Occult Blood Influenza A (Rapid) Influenza B (Rapid) Blood Type Cancelled O POSITIVE Antibody Screen Cancelled Active Medications Generic Name Dose Route Start Last Admin Trade Name Freq PRN Reason Stop Dose Admin Chlorhexidine Gluconate 1 applic 12/15/19 22:00 Hibiclens For Decolonization - TP HS GREY Potassium Chloride/Sodium Chloride 20 meq in 1,000 mls @ 83 mls/hr 12/14/19 21 :45 12/15/19 00:46 Ns+20 Meq Kcl - IV 83 mls/hr ASDIR GREY Administration Octreotide Acetate 200 mcg/ 500 mls @ 20.833 mls/hr 12/15/19 10:00 12/15/19 11:48 Octreotide Acetate 1,000 mcg/ IVPB 20.833 mls/hr Dextrose ASDIR GREY Administration Protocol Mupirocin 1 applic 12/15/19 22:00 Bactroban Ointment (For Decolonization) - NS 12/20/19 21:59 BID GREY Oseltamivir Phosphate 75 mg 12/14/19 22:00 12/15/19 10:28 Tamiflu - PO 12/19/19 21:59 75 mg BID GREY Administration Pantoprazole Sodium 40 mg 12/15/19 10:00 12/15/19 10:28 Protonix Iv IVPUSH 40 mg BID GREY Administration ASSESSMENT/PLAN: 69 year old female with PMH significant for alcoholic liver cirrhosis, RCC ( renal cell carcinoma), osteoporosis, and hypertension. She presented to the ER with complaints of bleeding pre rectum over the past 3 days as well as non productive cough, fever, and chills for the past 2 days. Neuro: AAOx3 monitor CV: Hx of HTN Pt currently hemodynamically stable monitor Pulm: satting well on 2L NC flu A positive oseltamivir 75mg BID Urine legio and Pneumo ordered GI: abdominal pain FOBT positive GI Dr Molina on case possible transfer to tertiary center for management C diff, stool O&P ordered and stool culture and pH NPO s/o octriotide on protonix IV daily Heme/Onc: Pt continues to have bloody BM HB dropped to 9. PLatelet of 32 s/p 1 unit FFP monitor Renal: BUN/Cr 20.2/0.9 Hypokalemia at 3.1. sp oral repletion in ED on NS with KCL FEN: NS with KCL @83 monitor lytes NPO Lines: peripheral lines only Dispo: We will continue to follow the patient. pt pending transfer Visit type - Emergency Visit Emergency Visit: Yes ED Registration Date: 12/14/19 Care time: The patient presented to the Emergency Department on the above date and was hospitalized for further evaluation of their emergent condition. - New Patient This patient is new to me today: No - Critical Care Critical Care patient: Yes Total Critical Care Time (in minutes): 36 Critical Care Statement: The care of this patient involved high complexity decision making to prevent further life threatening deterioration of the patient 's condition and/or to evaluate & treat vital organ system(s) failure or risk of failure. ATTENDING PHYSICIAN STATEMENT I saw and evaluated the patient. I reviewed the resident's note and discussed the case with the resident. I agree with the resident's findings and plan as documented. SUBJECTIVE: OBJECTIVE: ASSESSMENT AND PLAN:
[2019-12-15 14:19] VITALS: BP 147/67; PULSE 18; TEMP 99.3
--- NOTE | 2019-12-15 15:08 | CON.GI ---
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 Obtained information from patient's daughter History of Present Illness: 69F admitted for evaluation of chills, cough (productive with green phlegm per the patient), fevers at home. patient states that she was also having diarrhea for 3 days (non-bloody, non-melenic) and noticed blood mixed in with it as well yesterday. She is being treated for the flu. I was asked to evaluate the rectal bleeding and her history of alcoholic liver disease. The patient states that she has been told of having a liver problem 5 years ago., She alludes to being followed at [facility] but cannot give me anymore information regarding her physicians. Her daughter explained via telephone that her mother underwent EGD 5 years ago that was "OK". She also had an attempted colonoscopy around that time that could not be completed "due to damage from radiation therapy her mother received in [place] several years ago for treatment of cervical cancer". Ms. Carrera denies nausea, vomiting, abdominal pain. She does have a cough and mild wheeze. Rectal temp on exam was 100. Platelets were 30K on admission with INR 1.34. She has remained hemodynamically stable. CTA was performed but not as of yet read. - History Source History Provided By: Patient, Family Member (daughter), Medical Record Limitations to Obtaining History: Poor Historian - Past Medical History Hepatobiliary: Yes: Cirrhosis (Alcoholic) Renal/: Yes: Cancer (Left renal cancer) Reproductive: Yes: Other (Cervical cancer) - Past Surgical History Past Surgical History: Yes: Nephrectomy (left) - Alcohol/Substance Use Hx Alcohol Use: No - Smoking History Smoking history: Former smoker Have you smoked in the past 12 months: No - Social History Usual Living Arrangement: With Child Place of : Other ([place]) History of Recent Travel: No Home Medications - Allergies Allergies/Adverse Reactions: Allergies Allergy/AdvReac Type Severity Reaction Status Date / Time No Known Allergies Allergy Verified 12/14/19 15:37 - Home Medications Home Medications: Ambulatory Orders Alendronate Sodium [Fosamax] 1 tab PO WEEKLY 12/14/19 Calcium Carbonate/Vitamin D3 [Calcium 600-Vit D3 400 Tablet] 1 each PO DAILY Carvedilol [Coreg -] 3.125 mg PO DAILY 12/14/19 Carvedilol [Coreg -] 6.25 mg PO HS 12/14/19 Folic Acid 1 mg PO DAILY 12/14/19 Family Medical History Other Family History: No family history of liver disease Review of Systems - Review of Systems Constitutional: reports: Chills, Fever, Weakness Cardiovascular: denies: Chest Pain Respiratory: reports: Cough, Wheezing. denies: Hemoptysis Gastrointestinal: reports: Diarrhea, Rectal Bleeding. denies: Abdominal Pain, Dysphagia, Melena, Nausea, Vomiting, Vomiting Blood Physical Exam-GI Vital Signs: Taken at time of evaluation 1330 Temperature 100 F Rectal 12/15/19 14:00 Pulse Rate 18 L 12/15/19 14:00 Respiratory Rate 12/15/19 14:00 Blood Pressure 147/67 12/15/19 14:00 O2 Sat by Pulse Oximetry (%) 96% RA 12/15/19 14:00 Constitutional: Yes: Calm Eyes: No: Sclera Icterus Cardiovascular: Yes: Regular Rate and Rhythm, Murmur (+ 2/6 systolic murmur at the RSB) Respiratory: Yes: Wheezes (exp wheezing bilaterally) Gastrointestinal Inspection: Yes: Scars (left flank). No: Distention ...Auscultate: Yes: Normoactive Bowel Sounds ...Palpate: Yes: Soft. No: Hepatomegaly, Splenomegaly, Tenderness ...Percussion: No: Tympanitic ...Rectal Exam: Yes: Other (Director Digital present: narrowed rectal vault, indurated anterior rectal wall, formed stool palpated with dark blood mixed.) Edema: No (No LE edema) Neurological: Yes: Alert, Oriented (x 3) Labs: CBC, BMP 12/15/19 06:22 12/14/19 15:48 INR, PTT INR 1.36 (0.83-1.09) H 12/15/19 06:22 Problem List - Problems (1) BRBPR (bright red blood per rectum) Assessment/Plan: Rectal bleeding. Hemodynamically stable. Per the patient she was having non bloody diarrhea bowel movements prior to the onset of her rectal bleeding. Given her hemodynamic stability, I suspect that this will lower GI in origin potentiated by her coagulopathy and severe thrombocytopenia. Possibilities include diverticular bleed, ectasias, radiation proctitis, or mass lesions of the colon. Given her signnificant liver disase, esophgeal varices will need to be excluded as well. I explained this to the patient and to her daughter. She will need both upper endoscopy and colonoscopy. I explained to the patient and her daughter that given previous failed attempt at colonoscopy (presumably from stricturing / fibrosis from prior radiation therapy) as well as chronic liver disease complicating her course with significant thrombocytopenia, continued work-up should take place at a tertiary care / liver center once respiratory permits her to be safely sedated. I discussed this with Ms. Carrera's primary team as well and advised initiation of transfer to [facility]. The patient and her daughter were in agreement with this plan. For now: Initiated octreotide infusion IV Abx (ceftriaxone) BID PPI NPO Evaluation of respiratory issues per primary team Code(s): K62.5 - HEMORRHAGE OF ANUS AND RECTUM
--- NOTE | 2019-12-15 16:48 | PN ---
Teaching Attending Note Name of Resident: Brent Arce ATTENDING PHYSICIAN STATEMENT I saw and evaluated the patient. I reviewed the resident's note and discussed the case with the resident. I agree with the resident's findings and plan as documented. SUBJECTIVE: Patient is a 69yo polish speaking female with PMHx of alcoholic liver cirrhosis , renal cell ca , bloody presented with chills, cough (productive with green phlegm per the patient), fevers at home, bloody diarrhea for 3 days. Denies any bloody stool at this time. No fever or chills. Vital Signs Temperature 99.3 F 12/15/19 14:00 Pulse Rate 18 L 12/15/19 14:00 Respiratory Rate 18 12/15/19 14:00 Blood Pressure 147/67 12/15/19 14:00 O2 Sat by Pulse Oximetry (%) 98 12/15/19 14:00 GENERAL: The patient is awake, alert, and fully oriented, in no acute distress. HEAD: Normal with no signs of trauma. EYES: PERRL, extraocular movements intact, sclera anicteric, conjunctiva clear. ENT: Ears normal, oropharynx clear without exudates, moist mucous membranes. NECK: Trachea midline, full range of motion, supple. LUNGS: decreased BS BL , positive for wheeze, no crackles, no accessory muscle use. HEART: Regular rate and rhythm, S1, S2 without murmur, rub or gallop. ABDOMEN: Soft, + distention mild, + BS, no guarding, no rebound, no masses appreciated. EXTREMITIES: 2+ pulses, warm, well-perfused, no edema. NEUROLOGICAL: Cranial nerves II through XII grossly intact. Normal speech, gait not observed. PSYCH: Normal mood, normal affect. SKIN: Warm, dry, normal turgor, no rashes or lesions noted CBCD WBC 3.1 K/mm3 (4.0-10.0) L 12/15/19 06:22 RBC 2.80 M/mm3 (3.60-5.2) L 12/15/19 06:22 Hgb 9.9 GM/dL (10.7-15.3) L 12/15/19 06:22 Hct 28.6 % (32.4-45.2) L 12/15/19 06:22 MCV 102.2 fl (80-96) H 12/15/19 06:22 MCHC 34.7 g/dl (32.0-36.0) 12/15/19 06:22 RDW 14.4 % (11.6-15.6) 12/15/19 06:22 Plt Count 32 K/MM3 (134-434) L* 12/15/19 06:22 MPV 10.1 fl (7.5-11.1) 12/15/19 06:22 CMP Sodium 143 mmol/L (136-145) 12/14/19 15:48 Potassium 3.1 mmol/L (3.5-5.1) L 12/14/19 15:48 Chloride 114 mmol/L (98-107) H 12/14/19 15:48 Carbon Dioxide 21 mmol/L (21-32) 12/14/19 15:48 Anion Gap 8 MMOL/L (8-16) 12/14/19 15:48 BUN 20.2 mg/dL (7-18) H 12/14/19 15:48 Creatinine 0.9 mg/dL (0.55-1.3) 12/14/19 15:48 Random Glucose 89 mg/dL (74-106) 12/14/19 15:48 Calcium 8.0 mg/dL (8.5-10.1) L 12/14/19 15:48 Total Bilirubin 1.3 mg/dL (0.2-1) H 12/14/19 15:48 AST 198 U/L (15-37) H 12/14/19 15:48 ALT 60 U/L (13-61) 12/14/19 15:48 Alkaline Phosphatase 69 U/L (45-117) 12/14/19 15:48 Total Protein 7.1 g/dl (6.4-8.2) 12/14/19 15:48 Albumin 2.8 g/dl (3.4-5.0) L 12/14/19 15:48 Current Medications Generic Name Dose Route Start Last Admin Trade Name Freq PRN Reason Stop Dose Admin Chlorhexidine Gluconate 1 applic 12/15/19 22:00 Hibiclens For Decolonization - TP HS GREY Potassium Chloride/Sodium Chloride 20 meq in 1,000 mls @ 83 mls/hr 12/14/19 21 :45 12/15/19 00:46 Ns+20 Meq Kcl - IV 83 mls/hr ASDIR GREY Administration Octreotide Acetate 200 mcg/ 500 mls @ 20.833 mls/hr 12/15/19 10:00 12/15/19 11:48 Octreotide Acetate 1,000 mcg/ IVPB 20.833 mls/hr Dextrose ASDIR GREY Administration Protocol Mupirocin 1 applic 12/15/19 22:00 Bactroban Ointment (For Decolonization) - NS 12/20/19 21:59 BID GREY Oseltamivir Phosphate 75 mg 12/14/19 22:00 12/15/19 10:28 Tamiflu - PO 12/19/19 21:59 75 mg BID GREY Administration Pantoprazole Sodium 40 mg 12/15/19 10:00 12/15/19 10:28 Protonix Iv IVPUSH 40 mg BID GREY Administration Home Medications Medication Instructions Recorded Alendronate Sodium [Fosamax] 1 tab PO WEEKLY 12/14/19 Calcium Carbonate/Vitamin D3 1 each PO DAILY 12/14/19 [Calcium 600-Vit D3 400 Tablet] Carvedilol [Coreg -] 3.125 mg PO DAILY 12/14/19 Carvedilol [Coreg -] 6.25 mg PO HS 12/14/19 Folic Acid 1 mg PO DAILY 12/14/19 ASSESSMENT AND PLAN: Patient is a 69 year old woman with a PMH of Alcohol abuse, Alcoholic liver cirhhosis and Renal carcinoma presenting with a 3 day history of bloody diarrhea # Influenza A: on tAMIFLU CONTINUE, ceftriaxone IV #GIB : MONITOR, ON oCTEEOTIDE infusion, PPI, npo #ALCOHOLIC liver cirrhosis : GI consult appreciated, need to r/o esophgeal varices #Bloody diarrhea non paiful: possible diverticular bleed, ectasias, radiation proctitis, or mass lesions of the colon. #Thrombocytopenia DVT Px: can't ac due to thrombocytopenia Hemodynamically stable. As per GI : patient needs both upper endoscopy and colonoscopy, since patient failed previous colonoscopy (presumably from stricturing / fibrosis from prior radiation therapy) as well as chronic liver disease complicating her course with significant thrombocytopenia, continued work-up should take place at a tertiary care center. Tx patient to [facility].
--- NOTE | 2019-12-15 17:13 | DS ---
Physical Exam: SUBJECTIVE: Patient seen and examined at bedside in ED. She was admitted overnight. This AM she complaints of cough, which results in abdominal pain. This is consistent with her presentation a few hours prior for admission. She will be transfered to [facility] for further GI evaluation given multiple comorbdities. OBJECTIVE: Vital Signs Period Temp Pulse Resp BP Sys/Galindo Pulse Ox Last 24 Hr 99.3 F-101.0 F 18-88 18-20 125-147/55-67 97-98 PHYSICAL EXAM GENERAL: AOx3, in mild distress. Bruneian speaking. Family at bedside. HEAD: NCAT EYES: ISRRAEL, EOMI, conjunctiva clear. ENT: Ears normal, nares patent, oropharynx clear without exudates. Moist mucous membranes. NECK: Normal range of motion, supple without lymphadenopathy, JVD, or masses. LUNGS: CTAB. No wheezes, and no crackles. No accessory muscle use. HEART: RRR s1 s2 ABDOMEN: Soft, tender in all 4 quadrants. BS present in all 4 quadrants, non- distended, no JVD. ROSEMARY: Gross blood at orifice. severely limited/sphincter fibrosed. MUSCULOSKELETAL: No bony deformities or tenderness. No CVA tenderness. UPPER EXTREMITIES: 2+ pulses, warm, well-perfused. No cyanosis. No clubbing. No peripheral edema. LOWER EXTREMITIES: 2+ pulses, warm, well-perfused. No calf tenderness. No peripheral edema. NEUROLOGICAL: No focal deficits. Cranial nerves II-XII intact. Normal speech. Gait not appreciated. PSYCHIATRIC: Cooperative. Good eye contact. Appropriate mood and affect. SKIN: Warm, dry, normal turgor, no rashes or lesions noted, normal capillary refill. LABS 12/14/19 12/14/19 12/14/19 15:37 15:48 15:48 WBC RBC Hgb Hct MCV MCH MCHC RDW Plt Count 30 L* D MPV Absolute Neuts (auto) Neutrophils % Lymphocytes % Monocytes % Eosinophils % Basophils % Nucleated RBC % Platelet Estimate Decreased Platelet Comment No clumping noted Retic Count 1.68 H PT with INR INR Sodium 143 Potassium 3.1 L Chloride 114 H Carbon Dioxide 21 Anion Gap 8 BUN 20.2 H Creatinine 0.9 Est GFR (CKD-EPI)AfAm 75.61 Est GFR (CKD-EPI)NonAf 65.24 Random Glucose 89 Calcium 8.0 L Magnesium 1.8 Iron TIBC Iron Saturation Unsaturated IBC Ferritin Total Bilirubin 1.3 H AST 198 H ALT 60 Alkaline Phosphatase 69 Total Protein 7.1 Albumin 2.8 L Vitamin B12 Serum Folate Stool Occult Blood Positive Influenza A (Rapid) Influenza B (Rapid) Blood Type Antibody Screen 12/14/19 12/14/19 12/14/19 15:48 16:48 21:39 WBC 4.7 RBC 3.01 L Hgb 10.6 L Hct 31.3 L MCV 103.9 H MCH 35.4 H MCHC 34.1 RDW 14.8 Plt Count 34 L* MPV 10.1 Absolute Neuts (auto) 3.9 Neutrophils % 84.5 H Lymphocytes % 6.4 L Monocytes % 8.9 Eosinophils % 0.0 D Basophils % 0.2 Nucleated RBC % 0 Platelet Estimate Platelet Comment Retic Count PT with INR INR Sodium Potassium Chloride Carbon Dioxide Anion Gap BUN Creatinine Est GFR (CKD-EPI)AfAm Est GFR (CKD-EPI)NonAf Random Glucose Calcium Magnesium Iron TIBC Iron Saturation Unsaturated IBC Ferritin Total Bilirubin AST ALT Alkaline Phosphatase Total Protein Albumin Vitamin B12 Serum Folate Stool Occult Blood Influenza A (Rapid) Positive A Influenza B (Rapid) Negative Blood Type O POSITIVE Antibody Screen Negative 12/15/19 12/15/19 12/15/19 04:20 06:22 06:22 WBC 3.1 L RBC 2.80 L Hgb 9.9 L Hct 28.6 L MCV 102.2 H MCH 35.4 H MCHC 34.7 RDW 14.4 Plt Count 32 L* MPV 10.1 Absolute Neuts (auto) 2.5 Neutrophils % 81.1 Lymphocytes % 7.9 L D Monocytes % 10.7 H Eosinophils % 0.0 Basophils % 0.3 Nucleated RBC % 0 Platelet Estimate Platelet Comment Retic Count PT with INR INR Sodium Potassium Chloride Carbon Dioxide Anion Gap BUN Creatinine Est GFR (CKD-EPI)AfAm Est GFR (CKD-EPI)NonAf Random Glucose Calcium Magnesium 2.0 Iron TIBC Iron Saturation Unsaturated IBC Ferritin Total Bilirubin AST ALT Alkaline Phosphatase Total Protein Albumin Vitamin B12 5963 H Serum Folate 35 H Stool Occult Blood Influenza A (Rapid) Influenza B (Rapid) Blood Type Cancelled Antibody Screen 12/15/19 12/15/19 12/15/19 06:22 06:22 10:45 WBC RBC Hgb Hct MCV MCH MCHC RDW Plt Count MPV Absolute Neuts (auto) Neutrophils % Lymphocytes % Monocytes % Eosinophils % Basophils % Nucleated RBC % Platelet Estimate Platelet Comment Retic Count PT with INR 16.10 H INR 1.36 H Sodium Potassium Chloride Carbon Dioxide Anion Gap BUN Creatinine Est GFR (CKD-EPI)AfAm Est GFR (CKD-EPI)NonAf Random Glucose Calcium Magnesium Iron 11 L TIBC 269 Iron Saturation 4 L Unsaturated IBC 258 Ferritin 115.0 Total Bilirubin AST ALT Alkaline Phosphatase Total Protein Albumin Vitamin B12 Serum Folate Stool Occult Blood Influenza A (Rapid) Influenza B (Rapid) Blood Type Cancelled Antibody Screen Cancelled 12/15/19 10:45 WBC RBC Hgb Hct MCV MCH MCHC RDW Plt Count MPV Absolute Neuts (auto) Neutrophils % Lymphocytes % Monocytes % Eosinophils % Basophils % Nucleated RBC % Platelet Estimate Platelet Comment Retic Count PT with INR INR Sodium Potassium Chloride Carbon Dioxide Anion Gap BUN Creatinine Est GFR (CKD-EPI)AfAm Est GFR (CKD-EPI)NonAf Random Glucose Calcium Magnesium Iron TIBC Iron Saturation Unsaturated IBC Ferritin Total Bilirubin AST ALT Alkaline Phosphatase Total Protein Albumin Vitamin B12 Serum Folate Stool Occult Blood Influenza A (Rapid) Influenza B (Rapid) Blood Type O POSITIVE Antibody Screen HOSPITAL COURSE: Date of Admission:12/14/19 69 y/o female PMH alcohol abuse, alcoholic liver cirrhosis and renal cell carcinoma BIBEMS for 3 day h/o bloody diarrhea. Patient seen and examined at bedside in ED. She was admitted overnight. This AM she complaints of cough, which results in abdominal pain. This is consistent with her presentation a few hours prior for admission. Her stay was notable for influenza postive (tamiflu started). She was administered octreotide and PPI and kept npo for GI bleed; possible diverticular bleed, ectasias, radiation proctitis, or mass lesions of the colon. She was transferred to [facility] for further GI evaluation given need for both upper endoscopy and colonoscopy. Pt failed previous colonoscopy ( presumably from stricturing/fibrosis from prior radiation therapy) as well as chronic liver disease complicating her course with significant thrombocytopenia , continued work-up should take place at a tertiary care center. Date of Discharge: 12/15/19 Minutes to complete discharge: 40 Discharge Summary Problems reviewed: Yes Reason For Visit: INFLUENZA DUE TO INFLUENZA TYPE A Current Active Problems BRBPR (bright red blood per rectum) (Acute) Hypokalemia (Acute) Influenza A (Acute) Rectal bleeding (Acute) Condition: Stable - Instructions Disposition: TRANSFER ACUTE CARE/OTHER HOSP - Home Medications Comprehensive Discharge Medication List: Ambulatory Orders Alendronate Sodium [Fosamax] 1 tab PO WEEKLY 12/14/19 Calcium Carbonate/Vitamin D3 [Calcium 600-Vit D3 400 Tablet] 1 each PO DAILY Carvedilol [Coreg -] 3.125 mg PO DAILY 12/14/19 Carvedilol [Coreg -] 6.25 mg PO HS 12/14/19 Folic Acid 1 mg PO DAILY 12/14/19 This patient is new to me today: Yes Date on this admission: 01/06/20 Emergency Visit: Yes ED Registration Date: 12/14/19 Care time: The patient presented to the Emergency Department on the above date and was hospitalized for further evaluation of their emergent condition. Critical Care patient: Yes Total Critical Care Time (in minutes): 40 Critical Care Statement: The care of this patient involved high complexity decision making to prevent further life threatening deterioration of the patient 's condition and/or to evaluate & treat vital organ system(s) failure or risk of failure. - Discharge Referral Referred to [facility] No ATTENDING PHYSICIAN STATEMENT I saw and evaluated the patient. I reviewed the resident's note and discussed the case with the resident. I agree with the resident's findings and plan as documented. SUBJECTIVE: OBJECTIVE: ASSESSMENT AND PLAN:
[2019-12-15] MEDS ORDERED: CHLORHEXIDINE GLUCONATE 4% CLEANSER FOR DECOLONIZATION TP SCH (22:00)
[2019-12-15] MEDS ORDERED: MUPIROCIN 2% TOPICAL OINTMENT FOR DECOLONIZATION NS SCH (22:00)
== END 2019-12-15 16:15 | disposition short-term general hospital (02) | DRG 253 ==
LOC: JER 15:24 → JERBED 19:02
PROVIDERS: ADMIT Internal Medicine; ATTEND Internal Medicine
DX: K62.5 Hemorrhage of anus and rectum (principal); J10.1 Influenza due to other identified influenza virus with other respiratory manifestations; E87.6 Hypokalemia; K64.4 Residual hemorrhoidal skin tags; D62 Acute posthemorrhagic anemia; E88.09 Other disorders of plasma-protein metabolism, not elsewhere classified; E46 Unspecified protein-calorie malnutrition; E66.9 Obesity, unspecified; Z68.31 Body mass index [BMI] 31.0-31.9, adult; K70.30 Alcoholic cirrhosis of liver without ascites; M81.0 Age-related osteoporosis without current pathological fracture; I10 Essential (primary) hypertension; R50.9 Fever, unspecified; D64.9 Anemia, unspecified; D69.6 Thrombocytopenia, unspecified; K62.7 Radiation proctitis; K57.93 Diverticulitis of intestine, part unspecified, without perforation or abscess with bleeding; Z90.5 Acquired absence of kidney; Z85.41 Personal history of malignant neoplasm of cervix uteri; Z85.53 Personal history of malignant neoplasm of renal pelvis
CPT/HCPCS: 36415; 36430; 71046-TC-FY; 74174-TC; 80053; 82272; 82607; 82728; 82746; 83540; 83550; 83735; 85025; 85027; 85044; 85610; 86850; 86900; 86901; 87804; 93005; 93010; 99284-25; P9034; Q9967

== ENCOUNTER 2020-12-04 22:18 | Inpatient (IN) | payer OTHER ==
[2020-12-04 23:27] LABS: BASO % 0.3 % (0-2.0); EOS % 3.3 % (0-4.5); HEMOGLOBIN 7.6 GM/dL (10.7-15.3); LYMPH % 13.1 % (8-40); MCH 31.8 pg (25.7-33.7); MEAN CELL VOLUME 96.3 fl (80-96); MEAN PLT VOLUME 9.5 fl (7.5-11.1); MONO % 10.7 % (3.8-10.2); NEUT % 72.6 % (42.8-82.8); PLATELET COUNT 82 K/MM3 (134-434); RBC 2.39 M/mm3 (3.60-5.2); RDW 15.5 % (11.6-15.6); WHITE BLOOD COUNT 3.1 K/mm3 (4.0-10.0)
[2020-12-04 23:41] LABS: EPI CELLS 3 /uL (0-25.1); HYALINE CASTS 18 /uL (0-3.1); URINE APPEARANCE CLOUDY; URINE BACTERIA 7292 /uL (0-1359); URINE BILIRUBIN NEGATIVE (NEGATIVE); URINE COLOR YELLOW; URINE GLUCOSE (UA) NEGATIVE (NEGATIVE); URINE KETONE NEGATIVE (NEGATIVE); URINE LEUK ESTERASE 2+ (NEGATIVE); URINE NITRITE POSITIVE (NEGATIVE); URINE PROTEIN 1+ (NEGATIVE); URINE RBC 620 /uL (0-23.9); URINE WBC 949 /uL (0-25.8)
[2020-12-04 23:52] LABS: CHLORIDE 114 mmol/L (98-107); POTASSIUM 4.4 mmol/L (3.5-5.1); SODIUM 139 mmol/L (136-145)
[2020-12-04 23:53] LABS: CALCIUM 8.7 mg/dL (8.5-10.1)
[2020-12-04 23:54] LABS: ALBUMIN 2.4 g/dl (3.4-5.0); ANION GAP 6 MMOL/L (8-16); BLOOD UREA NITROGEN 14.8 mg/dL (7-18); CO2 20 mmol/L (21-32); GLUCOSE,RANDOM 97 mg/dL (74-106)
[2020-12-04 23:57] LABS: CREATININE 0.9 mg/dL (0.55-1.3); SGOT/AST 37 U/L (15-37); SGPT/ALT 16 U/L (13-61)
[2020-12-04 23:59] LABS: BILIRUBIN,TOTAL 0.9 mg/dL (0.2-1); TOT PROT 6.7 g/dl (6.4-8.2)
[2020-12-05] LABS: ALK PHOS 80 U/L (45-117)
[2020-12-05] MEDS ORDERED: CEFTRIAXONE 1 GM in DEXTROSE 5%-WATER - 100 ML IVPB ONE (00:25)
[2020-12-05] MEDS ORDERED: CEFTRIAXONE 1 GM/50 ML BAG ONE (00:30)
[2020-12-05 06:26] LABS: BASO % 0.4 % (0-2.0); EOS % 3.9 % (0-4.5); HEMATOCRIT 20.8 % (32.4-45.2); LYMPH % 18.2 % (8-40); MCHC 33.3 g/dl (32.0-36.0); MONO % 14.2 % (3.8-10.2); NEUT % 63.3 % (42.8-82.8); PLATELET COUNT 69 K/MM3 (134-434); RBC 2.16 M/mm3 (3.60-5.2); RDW 15.1 % (11.6-15.6); WHITE BLOOD COUNT 2.7 K/mm3 (4.0-10.0)
[2020-12-05 06:30] LABS: INR 1.32 (0.83-1.09); PROTHROMBIN TIME (PATIENT) 15.9 SEC (9.7-13.0)
[2020-12-05 06:33] LABS: ACTIVATED PTT 36.2 SECONDS (25.2-36.5)
[2020-12-05 07:10] LABS: CHLORIDE 115 mmol/L (98-107); POTASSIUM 3.7 mmol/L (3.5-5.1); SODIUM 142 mmol/L (136-145)
[2020-12-05 07:12] LABS: CALCIUM 8.8 mg/dL (8.5-10.1)
[2020-12-05 07:13] LABS: ALBUMIN 2.2 g/dl (3.4-5.0); ANION GAP 7 MMOL/L (8-16); BLOOD UREA NITROGEN 14.8 mg/dL (7-18); CO2 20 mmol/L (21-32); GLUCOSE,RANDOM 85 mg/dL (74-106); MAGNESIUM 1.6 mg/dL (1.8-2.4)
[2020-12-05 07:16] LABS: CREATININE 0.9 mg/dL (0.55-1.3); PHOSPHOROUS 4.2 mg/dL (2.5-4.9); SGOT/AST 20 U/L (15-37); SGPT/ALT 15 U/L (13-61)
[2020-12-05 07:17] LABS: BILIRUBIN,TOTAL 0.8 mg/dL (0.2-1)
[2020-12-05 07:19] LABS: ALK PHOS 62 U/L (45-117)
[2020-12-05 07:22] LABS: IRON SERUM 92 ug/dL (50-175)
[2020-12-05 07:24] LABS: TOTAL IRON BINDING CAPACITY 285 ug/dL (250-450)
[2020-12-05 07:34] LABS: HEMOGLOBIN 6.9 GM/dL (10.7-15.3)
[2020-12-05] MEDS ORDERED: MAGNESIUM SULF 50% (8.12 MEQ/2 ML-1 GM VIAL) IVPB ONE (08:58)
[2020-12-05] MEDS ORDERED: LACTATED RINGERS SOLUTION 1,000 ML/1,000 ML INFUS.BAG IV SCH (09:00)
[2020-12-05] MEDS ORDERED: SODIUM CHLORIDE 1,000 ML IV SCH (09:00)
[2020-12-05] MEDS ORDERED: PT OWN MED DRAWER 7, Y5N ONE (09:43)
[2020-12-05] MEDS ORDERED: MAGNESIUM SULFATE IN WATER 2 GM/50 ML IVPB IVPB ONE (09:44)
[2020-12-05] MEDS ORDERED: ENOXAPARIN NA (PORCINE) 40 MG/0.4 ML DISP.SYRIN SQ SCH (10:00)
[2020-12-05] MEDS: CALCIUM 500MG/VIT-D 200 UNITS COMBO TABLET (FP) PO SCH (10:25)
[2020-12-05] MEDS ORDERED: FOLIC ACID 1 MG TABLET (FP) ONE (10:29)
[2020-12-05] MEDS ORDERED: CARVEDILOL 3.125 MG TABLET (FP) ONE (10:29)
[2020-12-05] MEDS: FOLIC ACID 1 MG TABLET (FP) PO SCH (10:30)
[2020-12-05] MEDS: CARVEDILOL 3.125 MG TABLET (FP) PO SCH (10:30)
[2020-12-05 18:13] LABS: HEMATOCRIT 24.6 % (32.4-45.2); HEMOGLOBIN 8.3 GM/dL (10.7-15.3); MCH 32.2 pg (25.7-33.7); MCHC 33.8 g/dl (32.0-36.0); MEAN PLT VOLUME 9.5 fl (7.5-11.1); PLATELET COUNT 79 K/MM3 (134-434); RBC 2.58 M/mm3 (3.60-5.2); RDW 15.9 % (11.6-15.6); WHITE BLOOD COUNT 2.8 K/mm3 (4.0-10.0)
[2020-12-05 18:47] VITALS: BMI 24.0
[2020-12-05] MEDS: CARVEDILOL 6.25 MG TABLET (FP) PO SCH (21:52)
[2020-12-05 22:59] LABS: HEMATOCRIT 23.1 % (32.4-45.2); HEMOGLOBIN 7.7 GM/dL (10.7-15.3); MCH 31.8 pg (25.7-33.7); MCHC 33.4 g/dl (32.0-36.0); MEAN CELL VOLUME 95.1 fl (80-96); MEAN PLT VOLUME 9.4 fl (7.5-11.1); PLATELET COUNT 64 K/MM3 (134-434); RBC 2.42 M/mm3 (3.60-5.2); RDW 15.7 % (11.6-15.6); WHITE BLOOD COUNT 2.3 K/mm3 (4.0-10.0)
[2020-12-06 08:22] LABS: POTASSIUM 3.5 mmol/L (3.5-5.1)
[2020-12-06 08:26] LABS: CALCIUM 7.8 mg/dL (8.5-10.1)
[2020-12-06 08:27] LABS: ALBUMIN 2.2 g/dl (3.4-5.0); BLOOD UREA NITROGEN 16.8 mg/dL (7-18); MAGNESIUM 1.9 mg/dL (1.8-2.4)
[2020-12-06 08:30] LABS: CREATININE 0.8 mg/dL (0.55-1.3); HEMOGLOBIN 8.1 GM/dL (10.7-15.3); MCH 31.7 pg (25.7-33.7); MCHC 33.6 g/dl (32.0-36.0); MEAN CELL VOLUME 94.3 fl (80-96); MEAN PLT VOLUME 9.5 fl (7.5-11.1); PHOSPHOROUS 2.8 mg/dL (2.5-4.9); PLATELET COUNT 68 K/MM3 (134-434); RBC 2.54 M/mm3 (3.60-5.2); RDW 15.9 % (11.6-15.6)
[2020-12-06 08:31] LABS: TOT PROT 6.4 g/dl (6.4-8.2)
[2020-12-06 08:35] LABS: BILIRUBIN,TOTAL 0.9 mg/dL (0.2-1)
[2020-12-06] MEDS ORDERED: cefTRIAXone SODIUM 1 GM VIAL ONE (10:07)
[2020-12-06] MEDS ORDERED: DEXTROSE 5%-WATER - 50 ML IVPB ONE (10:07)
[2020-12-06] MEDS: CEFTRIAXONE 1 GM in DEXTROSE 5%-WATER - 50 ML IVPB SCH (10:29)
[2020-12-06] MEDS: CARVEDILOL 3.125 MG TABLET (FP) PO SCH (10:30)
[2020-12-06] MEDS: CALCIUM 500MG/VIT-D 200 UNITS COMBO TABLET (FP) PO SCH (10:30)
[2020-12-06] MEDS: FOLIC ACID 1 MG TABLET (FP) PO SCH (10:30)
[2020-12-06] MEDS: CARVEDILOL 6.25 MG TABLET (FP) PO SCH (22:05)
[2020-12-07 08:34] LABS: HEMATOCRIT 21.7 % (32.4-45.2); HEMOGLOBIN 7.3 GM/dL (10.7-15.3); MCH 32.2 pg (25.7-33.7); MCHC 33.8 g/dl (32.0-36.0); MEAN PLT VOLUME 8.9 fl (7.5-11.1); PLATELET COUNT 59 K/MM3 (134-434); RBC 2.28 M/mm3 (3.60-5.2); RDW 16.1 % (11.6-15.6)
[2020-12-07 08:56] LABS: POTASSIUM 3.7 mmol/L (3.5-5.1)
[2020-12-07 08:58] LABS: CALCIUM 7.9 mg/dL (8.5-10.1)
[2020-12-07 09:02] LABS: CREATININE 0.7 mg/dL (0.55-1.3); PHOSPHOROUS 2.8 mg/dL (2.5-4.9)
[2020-12-07 09:03] LABS: BILIRUBIN,TOTAL 0.5 mg/dL (0.2-1); TOT PROT 5.9 g/dl (6.4-8.2)
[2020-12-07] MEDS ORDERED: cefTRIAXone SODIUM 1 GM VIAL ONE (09:13)
[2020-12-07] MEDS ORDERED: DEXTROSE 5%-WATER - 50 ML IVPB ONE (09:13)
[2020-12-07] MEDS: FOLIC ACID 1 MG TABLET (FP) PO SCH (10:05)
[2020-12-07] MEDS: CALCIUM 500MG/VIT-D 200 UNITS COMBO TABLET (FP) PO SCH (10:05)
[2020-12-07] MEDS: CARVEDILOL 3.125 MG TABLET (FP) PO SCH (10:05)
[2020-12-07] MEDS: CEFTRIAXONE 1 GM in DEXTROSE 5%-WATER - 50 ML IVPB SCH (10:05)
[2020-12-07 16:51] LABS: HEMATOCRIT 24.1 % (32.4-45.2); HEMOGLOBIN 7.8 GM/dL (10.7-15.3); MCH 31.5 pg (25.7-33.7); MCHC 32.5 g/dl (32.0-36.0); MEAN CELL VOLUME 96.7 fl (80-96); MEAN PLT VOLUME 9.5 fl (7.5-11.1); PLATELET COUNT 60 K/MM3 (134-434); RBC 2.49 M/mm3 (3.60-5.2); RDW 16.3 % (11.6-15.6)
[2020-12-07 16:55] LABS: WHITE BLOOD COUNT 1.9 K/mm3 (4.0-10.0)
[2020-12-07] MEDS: HEPARIN NA (PORCINE) 5,000 UNITS/ML 1ML VIAL SQ SCH ×2 (18:20→21:25)
[2020-12-07] MEDS: CARVEDILOL 6.25 MG TABLET (FP) PO SCH (21:26)
[2020-12-08] MEDS: HEPARIN NA (PORCINE) 5,000 UNITS/ML 1ML VIAL SQ SCH (05:15)
[2020-12-08 07:40] LABS: HEMATOCRIT 23.1 % (32.4-45.2); HEMOGLOBIN 7.7 GM/dL (10.7-15.3); MCH 31.9 pg (25.7-33.7); MCHC 33.5 g/dl (32.0-36.0); MEAN CELL VOLUME 95.2 fl (80-96); MEAN PLT VOLUME 9.2 fl (7.5-11.1); PLATELET COUNT 55 K/MM3 (134-434); RBC 2.43 M/mm3 (3.60-5.2); RDW 15.7 % (11.6-15.6)
[2020-12-08 07:46] LABS: POTASSIUM 3.9 mmol/L (3.5-5.1)
[2020-12-08 08:08] LABS: ALBUMIN 2.2 g/dl (3.4-5.0); BLOOD UREA NITROGEN 15.7 mg/dL (7-18)
[2020-12-08 08:10] LABS: CALCIUM 8.3 mg/dL (8.5-10.1)
[2020-12-08 08:11] LABS: CREATININE 0.6 mg/dL (0.55-1.3)
[2020-12-08 08:13] LABS: BILIRUBIN,TOTAL 0.7 mg/dL (0.2-1); TOT PROT 6.1 g/dl (6.4-8.2)
[2020-12-08] MEDS ORDERED: DEXTROSE 5%-WATER - 50 ML IVPB ONE ×2 (08:42→17:36)
[2020-12-08] MEDS ORDERED: cefTRIAXone SODIUM 1 GM VIAL ONE (08:42)
[2020-12-08] MEDS ORDERED: IRON SUCROSE INJECTION 200 MG in SODIUM CHLORIDE 90 ML IVPB ONE (09:07)
[2020-12-08] MEDS: CEFTRIAXONE 1 GM in DEXTROSE 5%-WATER - 50 ML IVPB SCH (09:50)
[2020-12-08] MEDS: FOLIC ACID 1 MG TABLET (FP) PO SCH (09:52)
[2020-12-08] MEDS: CARVEDILOL 3.125 MG TABLET (FP) PO SCH (09:52)
[2020-12-08] MEDS: CALCIUM 500MG/VIT-D 200 UNITS COMBO TABLET (FP) PO SCH (09:52)
[2020-12-08 11:10] LABS: WHITE BLOOD COUNT 1.4 K/mm3 (4.0-10.0)
[2020-12-08 17:03] LABS: BASO % 0.5 % (0-2.0); EOS % 6.1 % (0-4.5); HEMATOCRIT 23.8 % (32.4-45.2); HEMOGLOBIN 7.8 GM/dL (10.7-15.3); LYMPH % 18.7 % (8-40); MCH 31.7 pg (25.7-33.7); MCHC 32.9 g/dl (32.0-36.0); MEAN CELL VOLUME 96.4 fl (80-96); MEAN PLT VOLUME 9.5 fl (7.5-11.1); MONO % 13.4 % (3.8-10.2); NEUT % 61.3 % (42.8-82.8); PLATELET COUNT 54 K/MM3 (134-434); RBC 2.47 M/mm3 (3.60-5.2); RDW 15.6 % (11.6-15.6); WHITE BLOOD COUNT 1.4 K/mm3 (4.0-10.0)
[2020-12-08] MEDS ORDERED: PIPERACILLIN/TAZOBACTAM 3.375 GM VIAL IVPB ONE (17:36)
[2020-12-08 17:37] LABS: ANISOCYTOSIS 1+; MACROCYTOSIS 0; PLATELET ESTIMATE DECREASED
[2020-12-08] MEDS: PIPERACILLIN/TAZOB 3.375 GM 3.375 GM in DEXTROSE 5%-WATER - 50 ML IVPB SCH (18:11)
[2020-12-09] MEDS ORDERED: DEXTROSE 5%-WATER - 50 ML IVPB ONE ×3 (01:32→16:20)
[2020-12-09] MEDS ORDERED: PIPERACILLIN/TAZOBACTAM 3.375 GM VIAL IVPB ONE ×3 (01:32→16:19)
[2020-12-09] MEDS: PIPERACILLIN/TAZOB 3.375 GM 3.375 GM in DEXTROSE 5%-WATER - 50 ML IVPB SCH ×3 (01:41→17:45)
[2020-12-09 07:42] LABS: BASO % 0.6 % (0-2.0); EOS % 6.5 % (0-4.5); HEMOGLOBIN 7.7 GM/dL (10.7-15.3); LYMPH % 23.7 % (8-40); MCH 32.1 pg (25.7-33.7); MCHC 33.6 g/dl (32.0-36.0); MEAN CELL VOLUME 95.6 fl (80-96); MEAN PLT VOLUME 9.1 fl (7.5-11.1); MONO % 14.8 % (3.8-10.2); NEUT % 54.4 % (42.8-82.8); PLATELET COUNT 59 K/MM3 (134-434); RBC 2.41 M/mm3 (3.60-5.2); RDW 15.8 % (11.6-15.6)
[2020-12-09 08:16] LABS: POTASSIUM 3.7 mmol/L (3.5-5.1)
[2020-12-09 08:21] LABS: ALBUMIN 2.1 g/dl (3.4-5.0); BLOOD UREA NITROGEN 14.7 mg/dL (7-18)
[2020-12-09 08:22] LABS: CALCIUM 8.1 mg/dL (8.5-10.1)
[2020-12-09 08:24] LABS: CREATININE 0.8 mg/dL (0.55-1.3)
[2020-12-09 08:26] LABS: BILIRUBIN,TOTAL 0.7 mg/dL (0.2-1)
[2020-12-09 08:28] LABS: TOT PROT 5.9 g/dl (6.4-8.2)
[2020-12-09 08:48] LABS: WHITE BLOOD COUNT 1.5 K/mm3 (4.0-10.0)
[2020-12-09] MEDS: POLYETHYLENE GLYCOL 3350 119 GM BTL PO SCH (09:42)
[2020-12-09] MEDS: CALCIUM 500MG/VIT-D 200 UNITS COMBO TABLET (FP) PO SCH (09:42)
[2020-12-09] MEDS: FOLIC ACID 1 MG TABLET (FP) PO SCH (09:42)
[2020-12-09 10:20] LABS: ANISOCYTOSIS 1+; MACROCYTOSIS 1+; PLATELET ESTIMATE DECREASED
[2020-12-09] MEDS: AMOX TR/POT CLAV 500MG/125MG TABLETS (FP) PO SCH (21:49)
[2020-12-10 08:37] LABS: BASO % 0.5 % (0-2.0); EOS % 6.5 % (0-4.5); HEMATOCRIT 23.9 % (32.4-45.2); HEMOGLOBIN 7.8 GM/dL (10.7-15.3); LYMPH % 22.8 % (8-40); MCH 31.5 pg (25.7-33.7); MCHC 32.5 g/dl (32.0-36.0); MEAN CELL VOLUME 96.9 fl (80-96); MEAN PLT VOLUME 8.9 fl (7.5-11.1); MONO % 13.5 % (3.8-10.2); NEUT % 56.7 % (42.8-82.8); PLATELET COUNT 60 K/MM3 (134-434); RBC 2.47 M/mm3 (3.60-5.2); RDW 16.6 % (11.6-15.6)
[2020-12-10 08:43] LABS: WHITE BLOOD COUNT 1.6 K/mm3 (4.0-10.0)
[2020-12-10 09:01] LABS: POTASSIUM 3.8 mmol/L (3.5-5.1)
[2020-12-10 09:10] LABS: ALBUMIN 2.2 g/dl (3.4-5.0)
[2020-12-10 09:11] LABS: BLOOD UREA NITROGEN 13.9 mg/dL (7-18)
[2020-12-10 09:12] LABS: BILIRUBIN,TOTAL 0.6 mg/dL (0.2-1)
[2020-12-10 09:13] LABS: CALCIUM 8.4 mg/dL (8.5-10.1); TOT PROT 6.2 g/dl (6.4-8.2)
[2020-12-10 09:14] LABS: CREATININE 0.7 mg/dL (0.55-1.3)
[2020-12-10] MEDS: CALCIUM 500MG/VIT-D 200 UNITS COMBO TABLET (FP) PO SCH (09:57)
[2020-12-10] MEDS: AMOX TR/POT CLAV 500MG/125MG TABLETS (FP) PO SCH ×2 (09:57→18:31)
[2020-12-10] MEDS: POLYETHYLENE GLYCOL 3350 119 GM BTL PO SCH (09:57)
[2020-12-10] MEDS: FOLIC ACID 1 MG TABLET (FP) PO SCH (09:57)
[2020-12-10 12:50] LABS: ANISOCYTOSIS 1+; PLATELET ESTIMATE DECREASED
[2020-12-10 14:35] VITALS: BP 112/52; PULSE 84; TEMP 98.5
[2020-12-10 20:10] LABS: HEP B CORE AB, TOT Positive (Negative)
== END 2020-12-10 18:20 | disposition home or self-care (01) | DRG 466 ==
LOC: JER 22:18 → JERBED 12-05 00:25 → J7W 12-05 15:23
PROVIDERS: ADMIT Internal Medicine; ATTEND Internal Medicine
DX: T83.511A Infection and inflammatory reaction due to indwelling urethral catheter, initial encounter (principal); N39.0 Urinary tract infection, site not specified; D50.9 Iron deficiency anemia, unspecified; K70.30 Alcoholic cirrhosis of liver without ascites; N89.5 Stricture and atresia of vagina; K62.7 Radiation proctitis; D61.818 Other pancytopenia; R16.1 Splenomegaly, not elsewhere classified; D69.6 Thrombocytopenia, unspecified; I10 Essential (primary) hypertension; D63.8 Anemia in other chronic diseases classified elsewhere; E88.09 Other disorders of plasma-protein metabolism, not elsewhere classified; E46 Unspecified protein-calorie malnutrition; Z68.25 Body mass index [BMI] 25.0-25.9, adult; I85.00 Esophageal varices without bleeding; K62.9 Disease of anus and rectum, unspecified; K62.5 Hemorrhage of anus and rectum; Z90.5 Acquired absence of kidney; Z85.41 Personal history of malignant neoplasm of cervix uteri; Y84.9 Medical procedure, unspecified as the cause of abnormal reaction of the patient, or of later complication, without mention of misadventure at the time of the procedure; Z85.528 Personal history of other malignant neoplasm of kidney
CPT/HCPCS: 36415; 36430; 36511; 80053; 80074; 81003; 82105; 82272; 82607; 82728; 82746; 83540; 83550; 83735; 84100; 84484; 85025; 85027; 85045; 85610; 85730; 86704; 86706; 86707; 86708; 86709; 86803; 86850; 86900; 86901; 86922; 87086; 87186; 87340; 87389; 87522; 93005; 93010; 93970-TC; 97116-GP; 97161-GP; 99285-25; C9803; J1644; J1756; P9038; P9058; U0003